=== PATIENT | female | born 1955 | race Caucasian/White ===

== ENCOUNTER → 2017-12-27 13:58 | Outpatient (CLI) | payer OTHER, SELFPAY ==
[2017-12-27 14:10] LABS: Erythrocyte Sedimentation Rate 2 mm/hr (0-30)
== END ==
PROVIDERS: Family Provider Internal Medicine; PCP Internal Medicine; Visit Provider Internal Medicine
DX: R51 Headache (principal)
CPT/HCPCS: 85652

== ENCOUNTER → 2018-01-08 13:08 | Outpatient (CLI) | payer OTHER, SELFPAY ==
--- NOTE | 2018-01-08 13:11 | BI_ITS ---
MAMMOGRAPHY - BILATERAL SCREENING REASON FOR EXAM: Female, 62 years old. Routine annual screening examination. PERTINENT HISTORY: Non-contributory. TECHNIQUE: Digital bilateral breast jordin (3D mammographic acquisition) in the CC and MLO projections. 2-D mediolateral oblique (MLO) and craniocaudad (CC) views of both breasts were obtained. CAD: Full Field Digital Mammography with Computer Added Detection was performed. COMPARISON: None. Baseline examination. FINDINGS: Breast Composition: The breasts are heterogeneously dense, which may obscure small masses. There are no dominant masses or suspicious calcifications. Benign appearing bilateral axillary lymph nodes. No other significant abnormalities are identified. BI/SCREENING MAMM (CAD), BILAT IMPRESSION: Negative screening mammogram. Yearly followup mammogram recommended. (A) ASSESSMENT CATEGORY: BIRADS Category 2: Benign. A letter regarding these results will be sent to the patient by the facility within 30 days. Approximately 10% of breast cancers are not detected by mammography. A normal mammogram should not delay biopsy of a clinically suspicious abnormality. [id number] Electronically Signed: Yared Chung MD at 15:39 EDT Tel [phone], Service support ,
== END ==
PROVIDERS: Family Provider Internal Medicine; PCP Internal Medicine; Visit Provider Internal Medicine
DX: Z12.31 Encounter for screening mammogram for malignant neoplasm of breast (principal)
CPT/HCPCS: 77063; 77067

== ENCOUNTER → 2018-05-09 14:20 | Outpatient (CLI) | payer OTHER, SELFPAY ==
--- NOTE | 2018-05-09 14:25 | RAD_ITS ---
STUDY: X-RAY CHEST REASON FOR EXAM: Female, 63 years old. Positive PPD test TECHNIQUE: Frontal and lateral views of the chest. COMPARISON: None. FINDINGS: The lungs are clear and expanded. There is no demonstrated pleural abnormality. Normal size heart. Normal mediastinum and mary. Normal visualized pulmonary arteries. Normal visualized aortic arch and descending thoracic aorta. Normal visualized thoracic spine. There is degenerative osteoarthritis of the bilateral shoulders. There is no demonstrated abnormality of the visualized soft tissue structures of the upper abdomen. RAD/Chest PA and Lateral IMPRESSION: Degenerative changes, as described above. No demonstrated acute cardiopulmonary process. No evidence of active TB. Electronically Signed: Luis Antonio Powell MD at 8:03 EDT Tel , Service support ,
== END ==
PROVIDERS: Family Provider Internal Medicine; PCP Internal Medicine; Visit Provider Internal Medicine
DX: R76.11 Nonspecific reaction to tuberculin skin test without active tuberculosis (principal)
CPT/HCPCS: 71046

== ENCOUNTER → 2020-06-08 10:29 | Outpatient (CLI) | payer MEDICARE, SELFPAY ==
[2020-06-03 13:19] VITALS: BMI 22.6
--- NOTE | 2020-06-08 10:33 | BI_ITS ---
MAMMOGRAPHY - BILATERAL SCREENING REASON FOR EXAM: Female, 65 years old. Routine annual screening examination. PERTINENT HISTORY: Mother with breast cancer. TECHNIQUE: Digital bilateral breast zulema (3D mammographic acquisition) in the CC and MLO projections. 2-D mediolateral oblique (MLO) and craniocaudad (CC) views of both breasts were obtained. CAD: Full Field Digital Mammography with Computer Added Detection was performed. COMPARISON: Comparison is made with prior examination dated 01/08/2018. FINDINGS: Breast Composition: The breasts are heterogeneously dense, which may obscure small masses. There are no dominant masses or suspicious calcifications. Stable small benign appearing bilateral axillary lymph nodes. No other significant abnormalities are identified. There has been no significant change since the prior study. BI/SCREEN MAMM (CAD) W/ZULEMA BILAT IMPRESSION: Stable bilateral screening mammogram. Yearly follow-up mammogram recommended. (A) ASSESSMENT CATEGORY: BIRADS Category 2: Benign. A letter regarding these results will be sent to the patient by the facility within 30 days. Approximately 10% of breast cancers are not detected by mammography. A normal mammogram should not delay biopsy of a clinically suspicious abnormality. [id number] Electronically Signed: Yared Chung, at 12:41 EDT , Service support ,
--- NOTE | 2020-06-08 10:36 | BD_ITS ---
STUDY: DUAL ENERGY X-RAY ABSORPTIOMETRY / DXA REASON FOR EXAM: Female, 65 years old. 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 COMPARISON: None. FINDINGS: Lumbar Spine (L1-L4): g/cm2 (0.969) / T-score (-1.9) / Z-score (-0.3) Findings are suggestive of osteopenia with a moderate fracture risk. Left Femur Total: g/cm2 (0.833) / T-score (-1.4) / Z-score (-0.2) Left Femoral Neck: g/cm2 (0.806) / T-score (-1.7) / Z-score (-0.2) Right Femur Total: g/cm2 (0.847) / T-score (-1.3) / Z-score (-0.1) Right Femoral Neck: g/cm2 (0.809) / T-score (-1.6) / Z-score (-0.2) BD/Dexa Bone Density Study IMPRESSION: The patient is considered osteopenic as outlined below according to World Dw[employer] Organization (WHO) criteria with a moderate fracture risk. Reference Information: The T-score is the number of standard deviations above or below the standard which is normal for young adults at their peak bone mineral density. The World Health Organization (WHO) interprets the T-scores as follows: Above -1 Normal bone density Between -1 and -2.5 Osteopenia Equal to / or below -2.5 Osteoporosis As a practical clinical guideline, osteopenia may be graded as follows: Mild -1 through -1.5 Moderate -1.6 through -2.0 Severe -2.1 through -2.4 The Z-score is the number of standard deviations above or below age-matched controls. A Z-score of less than -1.5 would be considered abnormal. References: 1. NIH Osteoporosis and Related Bone Diseases www osteo.org 2. International Society for Clinical Densitometry www iscd.org 3. National Osteoporosis Foundation www nof.org Electronically Signed: Yared Chung, at 15:34 EDT , Service support ,
== END ==
LOC: OPBD 10:31
PROVIDERS: PCP Internal Medicine; Referring Provider Internal Medicine; Visit Provider Internal Medicine
DX: Z12.31 Encounter for screening mammogram for malignant neoplasm of breast (principal); Z78.0 Asymptomatic menopausal state
CPT/HCPCS: 77063; 77067; 77080

== ENCOUNTER 2020-07-06 06:54 | Day surgery (SDC) | payer MEDICARE, SELFPAY ==
[2020-06-03 13:19] VITALS: BMI 22.6
[2020-07-06] VITALS (7 sets, daily range): BP systolic 100–137; BP diastolic 57–84; PULSE 60–79; RESP 16; TEMP 36.2–37; O2SAT 94–100; BMI 22.4
--- NOTE | 2020-07-06 | GASB_PTH ---
PATIENT: JASIEL MARSHALL LOC: EN U#:[id number] AGE/SX: 65/F ROOM: RE07/06/[address]: Dr. Venkatesh Yu MD : 1955 BED: DIS: 07/06/2020 SPEC #: [id number] RECD: 07/06/20 12:24 STATUS: RAGHAVENDRA REBijan #: [id number] BLAIR: 07/06/20 00:[address]: Venkatesh Yu DEPT: SURGICAL PATHOLOGY RECD BY: Tan Aguilar ENTERED: 07/06/20 12:25 SP TYPE: Gastric Bx OTHR DR: Dr. Brooke Calderon DO Tissues: A - Gastric mucous membrane B - Rectum, NOS Procedures: Surgery Specimen Level IV HEADER OPERATION[place] [place] DIAGNOSIS: Colonic polyps, GERD, esophagitis, epigastric pain TISSUE SUBMITTED: A - Antrum biopsy for histo and H. pylori, B - Rectal mass biopsy MICROSCOPIC DIAGNOSIS A. Antrum, biopsy: Mild gastritis. See microscopic description and comment. B. 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 SJ:tori 07/07/20 COMMENT A. The results of immunohistochemistry for Helicobacter pylori will be reported separately ([id number]). B. Correlation with clinical, endoscopic findings and appropriate follow up are necessary. MICROSCOPIC DESCRIPTION Slides are reviewed. A. The specimen shows fragments of gastric mucosa with chronic inflammatory cell infiltrates in the lamina propria consisting of lymphocytes and plasma cells, consistent with mild chronic gastritis. GROSS DESCRIPTION A - Received in fixative is one container labeled with the patient's name and designated antrum biopsy. The specimen consists of one irregular fragment of light loomis soft tissue that measures 0.3 x 0.3 x 0.1 cm. The specimen is totally submitted in one cassette. B - Received in fixative is one container labeled with the patient's name and designated rectal mass biopsy. The specimen consists of multiple irregular fragments of light loomis soft tissue that in aggregate measure 1 x 0.4 x 0.1 cm. The specimen is totally submitted in one cassette. / DEJAN:tori 07/06/20 TC:0 CPT: 88301 x2
--- NOTE | 2020-07-06 06:25 | HP_ITS ---
Intake Vital Signs 06/03/20 Height 5 ft 6 in 06/03/20 Weight: 140 lb 06/03/20 BMI 22.6 06/03/20 BP 138/80 H 06/03/20 Blood Pressure Location Rt brachial 06/03/20 Position Sitting 06/03/20 Respiration 16 06/03/20 Pulse 71 06/03/20 Pulse Source Monitor 06/03/20 Temp 97.8 F 06/03/20 Temp Source Temporal 06/03/20 Pulse Oximetry (%) 97 06/03/20 Oxygen Delivery Method room air Intake Visit Reasons: EGD/ CSCOPE Statistical Financial Analyst Required: No Is patient in pain?: No Allergies ciprofloxacin [From Cipro] Allergy (Verified 05/29/16 23:19) Angioedema clindamycin Allergy (Verified 05/29/16 23:19) Other metronidazole [From Flagyl] Allergy (Verified 05/29/16 23:19) Hives Medications Cetirizine HCl [Zyrtec] 10 mg PO DAILY #14 tab 05/30/16 [Rx Confirmed 06/03/20] Bifidobacterium infantis 4 mg capsule 4 mg PO DAILY 06/03/20 [History Confirmed 06/03/20] omeprazole 20 mg capsule,delayed release 20 mg PO DAILY 06/03/20 [History Confirmed 06/03/20] propranolol 60 mg capsule,24 hr,extended release 60 mg PO DAILY cap 06/03/20 [History Confirmed 06/03/20] PFSH Medical History Iron deficiency anemia (Acute) Anemia (Acute) Anxiety (Acute) Hypertension (Chronic) GERD (gastroesophageal reflux disease) (Acute) Diverticulosis (Acute) Colon polyp (Acute) Surgical History Hx of cholecystectomy (Acute) Hx of tonsillectomy (Acute) Family History Mother Breast cancer Hypertension Social History (Updated 06/03/20 @ 13:[address] Venkatesh Yu MD) Smoking Status: Never smoker second hand exposure: No alcohol intake: never substance use type: does not use caffeine: Yes what type of physical activity do you participate in: none frequency: does not exercise HPI HPI Surgical H&P: Yes HPI: JASIEL MARSHALL, is a 65 F who presents to the office today for Evaluation for endoscopy. Patient had an upper and lower endoscopy completed on 06/25/2016. She was noted to have 3 polyps which were benign as well as significant gastroesophageal reflux disease. Biopsy did not show any signs of H. pylori organisms at that time. Patient states that if she misses any doses of her proton pump inhibitor she has significant epigastric discomfort. Patient also states that she has been having some occasional diarrhea. Happens between 4 times a year no particular reason on what brings it on. ROS General General: No weight change, appetite, fatigue, colon cancer or breast cancer HEENT HEENT: No difficulty swallowing, eye injury, eye surgery, swollen glands or hoarseness Endo Endocrine: No thyroid disease, diabetes mellitus, thyroid cancer, Hair loss, heat intolerance or cold intolerance Skin Skin: No rash or changing moles Musc Musculoskeletal: No back problems, arthritis, rheumatoid arthritis, gout or joint pain Cardio Cardiovascular: Yes high blood pressure; no murmur, pacemaker, heart disease, atrial fibrillation, heart attack, heart stent, palpitations, shortness of breat with exertion or chest pain Psych Psychiatric: Yes anxiety; no depression or hearing voices Resp Respiratory: No shortness of breath, No sleep apnea, No cough, No COPD, No asthma, No emphysema, No wheezing Gastro Gastrointestinal: Yes abdominal pain, Yes nausea or vomiting, Yes diarrhea, Yes constipation, No blood in stool, Yes acid reflux, No hemorrhoids, No ulcers, No gallbladder problem, No black,tarry stools Artis Hematologic: No blood thinners, No blood disorders, No bleeding, No anemia, No blood clots Exam Const General: no acute distress, well developed, well hydrated Orientation: oriented to person, oriented to place, oriented to time [facility] Head: normocephalic, atraumatic Ears: external ears normal Mouth: moist mucous membranes Eyes Sclera: sclerae normal Pupils: normal by confrontation Neck Neck: no lymphadenopathy noted Neck mass: No Thyroid: thyroid normal, symmetrical Chest Chest palpation & inspection: normal inspection of the chest Resp Effort & Inspection: normal respiratory effort Auscultation: clear to auscultation bilaterally Percussion: percussion normal Cardio Rate: regular rate Rhythm: regular rhythm Heart Sounds: no murmurs GI Palpation: soft, no hepatosplenomegaly, no masses, nontender Rectal Exam: other Other: Rectal exam deferred. Extrem General: normal to inspection, no clubbing, cyanosis or edema Assessment & Plan Problems 1. Personal history of colonic polyps Z86.010 2. Gastroesophageal reflux disease, unspecified whether esophagitis present K21.9 3. Epigastric pain R10.13 Plan I have discussed the above with the patient. I have offered the patient colonoscopy As well as an EGD for evaluation. I have explained the risks/benefits of the procedure and described the procedure. I have discussed the risks with the patient, including but not limited to: infection, bleeding, perforation of the GI tract requiring emergency surgery, inability to complete the procedure, injury to any internal organs, complications of anesthesia, etc. - the patient understands and agrees to proceed. I have answered all the patient's questions to the patient's satisfaction and the patient has no further questions. The patient has been given instructions for the colon cleansing preparation. Coding Level of Care Code Off vis,est,level 3 Diagnoses Personal history of colonic polyps Z86.010 Gastroesophageal reflux disease, unspecified whether esophagitis present K21.9 ??Esophagitis presence: esophagitis presence not specified Epigastric pain R10.13 COVID (Procedure Consent) Procedure Criteria Procedure Criteria: Yes Elective The surgeon/proceduralist and patient have discussed in detail the risk of exposure to and/or potential harm posed by the COVID-19 virus with having a surgery/procedure at this time versus the risk of? delaying the surgery/procedure. It is not possible to know either the risk of delaying the surgery or procedure or chance of getting an infection with perfect accuracy, but a joint decision was made between the patient and the surgeon/proceduralist ?to proceed at this time with the scheduled surgery/procedure as indicated on the consent form. I have re-examined the patient. There are no clinical changes since date of exam.
[2020-07-06] MEDS: Lactated Ringers 1,000 ML 100 ML IV (07:12)
--- NOTE | 2020-07-06 08:00 | IMM_PTH ---
PATIENT: JASIEL MARSHALL LOC: EN U#:[id number] AGE/SX: 65/F ROOM: RE07/06/[address]: Dr. Venkatesh Yu MD : 1955 BED: DIS: 07/06/2020 SPEC #: [id number] RECD: 07/06/20 13:22 STATUS: RAGHAVENDRA REQ #: [id number] BLAIR: 07/06/20 08:[address]: Venkatesh Yu DEPT: IMMUNOHISTOCHEMISTRY RECD BY: Nayely Fish ENTERED: 07/06/20 13:23 SP TYPE: IMMUNO OTHR DR: Dr. Brooke Calderon DO Tissues: A - Stomach, NOS Procedures: H Pylori (initial) PHYSICIAN & INSTITUTION [place] [id number] SPECIMEN INFORMATION: Tissue Source: A - Antrum biopsy Clinical Info: Colonic polyps; GERD, esophagitis, epigastric pain Specimen Number: [id number] CPT code: 38303 METHODOLOGY: Deparaffinized sections of prefer/formalin-fixed tissue or PAP/DQ stained slides are incubated with monoclonal/polyclonal antibodies/oligonucleotide probes. Localization is made via biotin free immunoperoxidase method. Appropriate controls are performed and reacted as expected. Results on target cell population are indicated in the following table: RESULTS: ANTIBODY / CLONE RESULT Block A H Pylori (polyclonal) negative These tests were developed and their performance characteristics determined by [facility]. They may not have been cleared or approved by the U.S. Food and Drug Administration. The FDA has determined that such clearance or approval is not necessary. INTERPRETATION: A. Antrum, biopsy: Negative for Helicobacter pylori organisms. SJ:tori 07/07/20
--- NOTE | 2020-07-06 08:24 | OP.EGD_ITS ---
Patient Name: Em Talbert Procedure Date: 07/06/2020 7:38 AM Date of : 1955 Age: 65 Procedure: Upper GI endoscopy Indications: Epigastric abdominal pain, Gastro-esophageal reflux disease Providers: Venkatesh Yu MD Referring MD: Brooke Calderon Medicines: See the Anesthesia note for documentation of the administered medications Patient Profile: This is a 65 year old female. Refer to note in patient chart for documentation of history and physical. Complications: No immediate complications. Procedure: Pre-Anesthesia Assessment: - Prior to the procedure, a History and Physical was performed, and patient medications and allergies were reviewed. The patient's tolerance of previous anesthesia was also reviewed. The risks and benefits of the procedure and the sedation options and risks were discussed with the patient. All questions were answered, and informed consent was obtained. Prior Anticoagulants: The patient has taken no previous anticoagulant or antiplatelet agents. ASA Grade Assessment: II - A patient with mild systemic disease. After reviewing the risks and benefits, the patient was deemed in satisfactory condition to undergo the procedure. After obtaining informed consent, the endoscope was passed under direct vision. Throughout the procedure, the patient's blood pressure, pulse, and oxygen saturations were monitored continuously. The Endoscope was introduced through the mouth, and advanced to the second part of duodenum. The upper GI endoscopy was accomplished without difficulty. The patient tolerated the procedure well. Scope In: 7:59:12 AM Scope Out: 8:02:12 AM Total Procedure Duration Time 0 hours 3 minutes 0 seconds Findings: The examined esophagus was normal. No biopsies or other specimens were collected for this exam. The Z-line was regular and was found 36 cm from the incisors. No biopsies or other specimens were collected for this exam. Localized moderate inflammation characterized by erythema, granularity and linear erosions was found in the prepyloric region of the stomach. Biopsies were taken with a cold forceps for Helicobacter pylori testing. The examined duodenum was normal. No biopsies or other specimens were collected for this exam. Impression: - Normal esophagus. No specimens collected. - Z-line regular, 36 cm from the incisors. No specimens collected. - Gastritis. Biopsied. - Normal examined duodenum. No specimens collected. Recommendation: - Discharge patient to home. - Resume previous diet. - Continue present medications. - Await pathology results. - Repeat upper endoscopy (date not yet determined) for surveillance based on pathology results. - Return to my office in 1 week. Procedure Code(s): --- Professional --- 84009, Esophagogastroduodenoscopy, flexible, transoral; with biopsy, single or multiple Diagnosis Code(s): --- Professional --- K29.70, Gastritis, unspecified, without bleeding R10.13, Epigastric pain K21.9, Gastro-esophageal reflux disease without esophagitis CPT copyright 2017 [employer]. All rights reserved. The codes documented in this report are preliminary and upon mounter clarinets review may be revised to meet current compliance requirements. MD Venkatesh Mera MD 07/06/2020 8:23:56 AM This report has been signed electronically. Number of Addenda: 0 Note Initiated On: 07/06/2020 7:38 AM
--- NOTE | 2020-07-06 08:24 | OP.CCLET_ITS ---
07/06/2020 Brooke Calderon [address] [place] [place] [address] Re : Upper GI endoscopy procedure for Em Talbert Dear Dr. Calderon This procedure was performed on Monday, July 06, 2020. My impressions and recommendations are as follows: Impressions : - Normal esophagus. No specimens collected. - Z-line regular, 36 cm from the incisors. No specimens collected. - Gastritis. Biopsied. - Normal examined duodenum. No specimens collected. Recommendations : - Discharge patient to home. - Resume previous diet. - Continue present medications. - Await pathology results. - Repeat upper endoscopy (date not yet determined) for surveillance based on pathology results. - Return to my office in 1 week. My findings are described in the full procedure note, which is enclosed. If I can be of further assistance, please feel free to contact me at Doctor phone number(s): , Fax: [phone], Work: . Sincerely, MD Venkatesh Mera MD 07/06/2020 8:23:56 AM This report has been signed electronically.
--- NOTE | 2020-07-06 08:30 | OP.COLON_ITS ---
Patient Name: Em Talbert Procedure Date: 07/06/2020 8:02 AM Date of : 1955 Age: 65 Procedure: Colonoscopy Indications: High risk colon cancer surveillance: Personal history of colonic polyps Providers: Venkatesh Yu MD Referring MD: Brooke Calderon Medicines: See the Anesthesia note for documentation of the administered medications Patient Profile: This is a 65 year old female. Refer to note in patient chart for documentation of history and physical. Last Colonoscopy: June 2016. Complications: No immediate complications. Procedure: Pre-Anesthesia Assessment: - Prior to the procedure, a History and Physical was performed, and patient medications and allergies were reviewed. The patient's tolerance of previous anesthesia was also reviewed. The risks and benefits of the procedure and the sedation options and risks were discussed with the patient. All questions were answered, and informed consent was obtained. Prior Anticoagulants: The patient has taken no previous anticoagulant or antiplatelet agents. ASA Grade Assessment: II - A patient with mild systemic disease. After reviewing the risks and benefits, the patient was deemed in satisfactory condition to undergo the procedure. After I obtained informed consent, the scope was passed under direct vision. Throughout the procedure, the patient's blood pressure, pulse, and oxygen saturations were monitored continuously. The colonoscope was introduced through the anus and advanced to the cecum, identified by appendiceal orifice and ileocecal valve. The colonoscopy was performed without difficulty. The patient tolerated the procedure well. The quality of the bowel preparation was good. Scope In: 8:03:57 AM Scope Withdrawal Time 0 hours 9 minutes 13 seconds Scope Out: 8:16:31 AM Total Procedure Duration Time 0 hours 12 minutes 34 seconds Findings: A 25 mm polyp was found in the rectum. The polyp was sessile. Biopsies were taken with a cold forceps for histology. This polyp was very irregular. On digital exam it feels very soft and movable however in looking at it it is suspicious for malignancy. It is not affixed to anything and I did not feel comfortable trying to place a lasso around it because I think that I probably would get too deep. I am going to wait for the biopsy results if they are benign and I think transanal excision of this would be appropriate. If they are malignant and I will refer her to a colorectal surgeon. Multiple small-mouthed diverticula were found in the sigmoid colon. No biopsies or other specimens were collected for this exam. The exam was otherwise without abnormality. Impression: - One 25 mm polyp in the rectum. Biopsied. - Diverticulosis in the sigmoid colon. No specimens collected. - The examination was otherwise normal. Recommendation: - Discharge patient to home. - Resume previous diet. - Continue present medications. - Await pathology results. - Repeat colonoscopy at appointment to be scheduled for surveillance. - Return to my office in 1 week. Procedure Code(s): --- Professional --- 76968, Colonoscopy, flexible; with biopsy, single or multiple Diagnosis Code(s): --- Professional --- Z86.010, Personal history of colonic polyps K62.1, Rectal polyp K57.30, Diverticulosis of large intestine without perforation or abscess without bleeding CPT copyright 2017 [employer]. All rights reserved. The codes documented in this report are preliminary and upon caltrans equipment operator review may be revised to meet current compliance requirements. MD Venkatesh Mera MD 07/06/2020 8:30:27 AM This report has been signed electronically. Number of Addenda: 0 Note Initiated On: 07/06/2020 8:02 AM
--- NOTE | 2020-07-06 08:31 | OP.CCLET_ITS ---
07/06/2020 Brooke Calderon [address] [place] [address] Re : Colonoscopy procedure for Em Talbert Dear Dr. Calderon This procedure was performed on Monday, July 06, 2020. My impressions and recommendations are as follows: Impressions : - One 25 mm polyp in the rectum. Biopsied. - Diverticulosis in the sigmoid colon. No specimens collected. - The examination was otherwise normal. Recommendations : - Discharge patient to home. - Resume previous diet. - Continue present medications. - Await pathology results. - Repeat colonoscopy at appointment to be scheduled for surveillance. - Return to my office in 1 week. My findings are described in the full procedure note, which is enclosed. If I can be of further assistance, please feel free to contact me at Doctor phone number(s): , Fax: [phone], Work: . Sincerely, MD Venkatesh Mera MD 07/06/2020 8:30:27 AM This report has been signed electronically.
== END 2020-07-06 09:05 | disposition home or self-care (01) ==
LOC: EN 06:54 → AC 06:55
PROVIDERS: PCP Internal Medicine; Referring Provider Internal Medicine; Visit Provider Surgery
PROC: 0DJD8ZZ Inspection of Lower Intestinal Tract, Via Natural or Artificial Opening Endoscopic (ICD-10-PCS; CPT 45378; principal; 2020-07-06 07:55)
DX: Z12.11 Encounter for screening for malignant neoplasm of colon (principal); R10.13 Epigastric pain; K29.50 Unspecified chronic gastritis without bleeding; K21.9 Gastro-esophageal reflux disease without esophagitis; Z86.010 Personal history of colon polyps; K62.1 Rectal polyp; K57.30 Diverticulosis of large intestine without perforation or abscess without bleeding; Z88.1 Allergy status to other antibiotic agents; I10 Essential (primary) hypertension; Z90.49 Acquired absence of other specified parts of digestive tract
CPT/HCPCS: 43239; 45380; 87426; 88305; 88342; C9803; J7120; J1610; J2405

== ENCOUNTER → 2020-07-15 07:54 | Outpatient (CLI) | payer MEDICARE, SELFPAY ==
[2020-07-06 07:08] VITALS: BMI 22.4
--- NOTE | 2020-07-15 07:58 | CT_ITS ---
STUDY: CT CHEST WITH CONTRAST REASON FOR EXAM: Female, 65 years old. Abnormal colonoscopy, suspicious for rectal cancer. Prior cholecystectomy. RADIATION DOSAGE (If Supplied By Facility): CTDIvol = ( 9.56 ) mGy, DLP = ( 618.34 ) mGycm TECHNIQUE: Transaxial imaging was performed following intravenous administration of 100mL Isovue-300. Multiplanar coronal and sagittal images were reformatted. Individualized dose optimization techniques were used for this CT. COMPARISON: None. FINDINGS: Small bilateral benign-appearing axillary lymph nodes. Minimal degree of dependent bibasilar atelectasis. There is no demonstrated pleural abnormality. Normal heart and pericardium. Normal mediastinum. Normal hilar regions. Normal enhanced pulmonary arteries. Normal aorta arch and descending thoracic aorta. There are degenerative changes of the thoracic spine. The patient is status post cholecystectomy. CT/Chest WITH Contrast IMPRESSION: No acute abnormality is seen Electronically Signed: Yared Chung, at 9:13 EST , Service support ,
--- NOTE | 2020-07-15 07:58 | CT_ITS ---
STUDY: CT ABDOMEN AND PELVIS WITH CONTRAST REASON FOR EXAM: Female, 65 years old. Abnormal colonoscopy, suspicious for rectal cancer. Prior cholecystectomy. RADIATION DOSAGE (If Supplied By Facility): CTDIvol = ( 9.56 ) mGy, DLP = ( 618.34 ) mGycm TECHNIQUE: Transaxial images were obtained from the dome of the diaphragm to the symphysis pubis with oral contrast. Oral and amp; IV Readi-CAT and amp; 100mL Isovue-300 was administered. Sagittal and coronal images were reconstructed. Individualized dose optimization techniques were used for this CT. COMPARISON: Comparison is made with prior study dated 05/29/2016. FINDINGS: The visualized lung bases are unremarkable. The visualized portions of the heart are within normal limits. Normal liver. The patient is status post cholecystectomy. Normal spleen. Normal pancreas. Normal bilateral adrenal glands. Minimal degree of bilateral hydronephrosis. This is stable finding. Normal visualized stomach. Normal small intestine. There are multiple colonic diverticula consistent with diverticulosis. There is diffuse thickening of the sigmoid colon. Minimal increased markings are seen in the surrounding peritoneal fat. The appendix is visualized and appears normal. Normal abdominal aorta. Normal inferior vena cava. Normal retroperitoneum. Normal urinary bladder. Normal abdominal wall. Disc space narrowing and spondylosis at the L1-L2 level with subchondral sclerosis. CT/Abdomen/Pelvis WITH Contrast IMPRESSION: Sigmoid diverticulosis with thickening of the sigmoid colon with increased markings in the surrounding peritoneal fat. Electronically Signed: Yared Chung, at 9:22 EST , Service support ,
[2020-07-15 08:10] LABS: CREATININE FINGERSTICK 0.8 mg/dL (0.55-1.02)
== END ==
PROVIDERS: PCP Internal Medicine; Referring Provider Surgery; Visit Provider Surgery
DX: C20 Malignant neoplasm of rectum (principal)
CPT/HCPCS: 71260; 74177; Q9967

== ENCOUNTER 2020-11-25 16:42 | Outpatient (RCR) | payer MEDICARE, SELFPAY | END 2021-01-31 23:59 | LOC: IMMUN 16:42 | PROVIDERS: PCP Internal Medicine; Visit Provider Family Medicine | DX: Z23 Encounter for immunization (principal) | CPT/HCPCS: 0001A; 0002A; 91300 ==

== ENCOUNTER → 2022-09-05 | Outpatient (CLI) | payer MEDICARE, SELFPAY ==
--- NOTE | 2022-09-05 14:04 | BI_ITS ---
MAMMOGRAPHY - BILATERAL SCREENING REASON FOR EXAM: Female, 67 years old. Routine annual screening examination. PERTINENT HISTORY: Mother with breast cancer. TECHNIQUE: Digital bilateral breast zulema (3D mammographic acquisition) in the CC and MLO projections. 2-D mediolateral oblique (MLO) and craniocaudad (CC) views of both breasts were obtained. CAD: Full Field Digital Mammography with Computer Added Detection was performed. COMPARISON: Comparison is made with prior study dated 06/08/2020 and 01/08/2018. FINDINGS: Breast Composition: The breasts are heterogeneously dense, which may obscure small masses. There are no dominant masses or suspicious calcifications. Stable small benign-appearing bilateral axillary lymph nodes. No other significant abnormalities are identified. There has been no significant change since the prior study. BI/SCRN MAMM (CAD)W/ZULEMA BILAT IMPRESSION: Stable bilateral screening mammogram. Yearly follow-up mammogram recommended. (A) ASSESSMENT CATEGORY: BIRADS Category 2: Benign. A letter regarding these results will be sent to the patient by the facility within 30 days. Approximately 10% of breast cancers are not detected by mammography. A normal mammogram should not delay biopsy of a clinically suspicious abnormality. [id number] Electronically Signed: Yared Chung MD at 15:15 EST ,
--- NOTE | 2022-09-05 14:21 | BD_ITS ---
STUDY: DUAL ENERGY X-RAY ABSORPTIOMETRY / DXA REASON FOR EXAM: Female, 67 years old. [id number] TECHNIQUE: Bone Mineral Density (BMD) measurements of lumbar spine and bilateral hips were obtained. COMPARISON: Comparison is made with prior study 06/08/2020. FINDINGS: Lumbar Spine (L1-L4): g/cm2 (0.722) / T-score (-3.4) / Z-score (-1.4) Findings are suggestive of osteoporosis with a high fracture risk. Left Femur Total: g/cm2 (0.703) / T-score (-2.0) / Z-score (0.6) Left Femoral Neck: g/cm2 (0.579) / T-score (-2.4) / Z-score (-0.8) Right Femur Total: g/cm2 (0.729) / T-score (-1.7) / Z-score (-0.4) Right Femoral Neck: g/cm2 (0.597) / T-score (-2.3) / Z-score (-0.6) The T-Scores on the most recent prior examination were: Lumbar Spine (L1-L4): There has been worsening of bone density since the previous examination. Left Femur Total: which represents a worsening of 9%. Right Femur Total: which represents a worsening of 7.2%. BD/Dexa Bone Density Study IMPRESSION: The patient is considered osteoporotic as outlined below according to World [employer] Organization (WHO) criteria with a high fracture risk. There has been worsening of bone density since the previous examination. Reference Information: The T-score is the number of standard deviations above or below the standard which is normal for young adults at their peak bone mineral density. The World Health Organization (WHO) interprets the T-scores as follows: Above -1 Normal bone density Between -1 and -2.5 Osteopenia Equal to / or below -2.5 Osteoporosis As a practical clinical guideline, osteopenia may be graded as follows: Mild -1 through -1.5 Moderate -1.6 through -2.0 Severe -2.1 through -2.4 The Z-score is the number of standard deviations above or below age-matched controls. A Z-score of less than -1.5 would be considered abnormal. References: 1. NIH Osteoporosis and Related Bone Diseases www osteo.org 2. International Society for Clinical Densitometry www iscd.org 3. National Osteoporosis Foundation www nof.org Electronically Signed: Yared Chung MD at 8:40 EST ,
== END | disposition home or self-care (01) ==
PROVIDERS: PCP Internal Medicine; Visit Provider Internal Medicine
DX: Z12.31 Encounter for screening mammogram for malignant neoplasm of breast (principal); M81.0 Age-related osteoporosis without current pathological fracture; Z80.3 Family history of malignant neoplasm of breast; Z78.0 Asymptomatic menopausal state
CPT/HCPCS: 77063; 77067; 77080

== ENCOUNTER → 2024-11-05 | Outpatient (CLI) | payer MEDICARE, SELFPAY ==
--- NOTE | 2024-11-05 15:50 | BD_ITS ---
PROCEDURE: DEXA BONE DENSITY STUDY REASON FOR EXAM: F, age 69 y/o . Postmenopausal. TECHNIQUE: DEXA scan of the lumbar spine and both hips. COMPARISON: None. FINDINGS: Lumbar Spine (L1-L4): g/cm2 (0.811)/T-score (-2.6)/Z-score (-0.4) findings are suggestive of osteoporosis with a high fracture risk. Left Femur Total: g/cm2 (0.731)/T-score (-1.7)/Z-score (-0.2) Left Femoral Neck: g/cm2 (0.620)/T-score (-2.1)/Z-score (-0 point) Right Femur Total: g/cm2 (0.758)/T-score (-1.5)/Z-score (0 points) Right Femoral Neck: g/cm2 (0.628)/T-score (-2.0)/Z-score (-0 point) The T-Scores on the most recent prior examination were: Lumbar Spine (L1-L4): There has been improvement of bone density since the previous examination. Left Femur Total: Improvement of 4.1%. Right Femur Total: Improvement of 4%. BD/Dexa Bone Density Study IMPRESSION: The patient is considered osteoporotic as outlined below according to World Hea th Organization (WHO) criteria with a high fracture risk. There has been improvement of bone density since the previous e xamination. Reading Location: [id number]
--- NOTE | 2024-11-05 16:30 | BI_ITS ---
PROCEDURE: SCRN MAMM (CAD)W/ZULEMA BILAT REASON FOR EXAM: F, Age 69 y/o , SCRN MAMM (CAD)W/ZULEMA BILAT. Mother with breast cancer. TECHNIQUE: Bilateral screening digital breast tomosynthesis with 2D and 3D images. Computer aided detection. COMPARISON: Prior exam(s) dating back to September 05, 2022.. FINDINGS: The breasts are extremely dense which lowers the sensitivity of mammography. Stable examination. No suspicious masses, areas of developing architectural distortion, or suspicious calcifications. BI/SCRN MAMM (CAD)W/ZULEMA BILAT IMPRESSION: BI-RADS 1: NEGATIVE. RECOMMEND ANNUAL MAMMOGRAPHIC SCREENING. Follow-up code: Routine Follow-up The patient will be notified of the results by letter. Reading Location: [place] [id number]
== END | disposition home or self-care (01) ==
LOC: OPBD 15:48
PROVIDERS: PCP Internal Medicine; Referring Provider Internal Medicine; Visit Provider Internal Medicine
DX: Z12.31 Encounter for screening mammogram for malignant neoplasm of breast (principal); Z78.0 Asymptomatic menopausal state; Z80.3 Family history of malignant neoplasm of breast
CPT/HCPCS: 77063; 77067; 77080

== ENCOUNTER → 2025-03-24 | Outpatient (CLI) | payer MEDICARE, SELFPAY ==
[2025-03-24] MEDS: 0.9 % NaCl (Sterile) Posiflush 10 mL IV (07:20)
--- NOTE | 2025-03-24 07:30 | CT_ITS ---
PROCEDURE: SOFT TISSUE NECK WITH CONTRAST 03/24/2025 REASON FOR EXAM: LYMPHADENOPATHY History of metastatic colorectal carcinoma. TECHNIQUE: SOFT TISSUE NECK WITH CONTRAST CONTRAST: Isovue 370 VOLUME: 75 mL One or more dose reduction techniques were used (e.g., Automated exposure control, adjustment of the mA and/or kV according to patient size, use of iterative reconstruction technique). RADIATION DOSE SUMMARY: CTDlvol: 8.74 mGy DLP: 314.64 mGycm COMPARISON: None FINDINGS: A right-sided port a catheter is seen with the tip in the superior vena cava. Airway: Midline and patent. Salivary glands: Unremarkable. Lymph nodes: No cervical lymphadenopathy. Thyroid: Unremarkable. Vasculature: Carotid arteries and internal jugular veins are unremarkable. Orbits: Unremarkable at visualized levels. Paranasal sinuses and mastoids: Partial opacification of the base of the left maxillary sinus. Lung apices: Patchy infiltrate in the anterior aspect of the right middle lobe. Upper mediastinum: Visualized mediastinum is unremarkable. Bones: Multilevel degenerative changes of the spine. Other: CT/Soft Tissue Neck WITH Contrast IMPRESSION: Partial opacification of the base of the left maxillary sinus. Patchy infiltrate in the anterior aspect of the right upper lobe. Reading Location: [facility]
[2025-03-24] MEDS: 0.9% Saline Lock 10 ML Syringe IV (07:40)
== END | disposition home or self-care (01) ==
PROVIDERS: PCP Internal Medicine; Referring Provider Internal Medicine; Visit Provider Internal Medicine
DX: R59.1 Generalized enlarged lymph nodes (principal)
CPT/HCPCS: 70491; Q9967; A4216